=== PATIENT | male | born 1990 | race Caucasian/White ===

== ENCOUNTER 2019-03-29 12:23 | Emergency (ER) | payer OTHER ==
[2019-03-29] MEDS ORDERED: 0.9 % SODIUM CHLORIDE 1000ML 1,000 ML IV ONE (12:31)
--- NOTE | 2019-03-29 12:36 | Emergency Department Record ---
History of Present Illness - General Chief complaint: Pain Stated complaint: PAIN ALL OVER Time Seen by Provider: 03/29/19 12:30 Source: Patient Mode of Arrival: Ambulatory Limitations: No limitations - History of Present Illness Initial comments: 28 yo male presents with five days of muscle pains over his whole body. The onset was Monday and gradually increased since then. The symptoms are present at all times. He states he is better in the morning then by the end of the day the pain all over is at its greatest. He also associates eating with making him feel "bad all over" as well. No vomiting. No diarrhea. No rashes. The pain seems most intense in his thighs proximally. He also feels more intense ache in his neck. He states it hurts to touch his neck, back, chest, arms, legs. No fevers. No recent illness or URI symptoms. Eating does not always make him worse. No vision changes, no coordination changes, no weakness, no numbness. No family history of premature deaths or diseases. No known rheumatologic disorders. He works a physical jobs. No joint redness or swelling. No urinary symptoms. MD Complaint: Other -: Days(s) (5) Location: Other (From head to legs) -: Yes Myalgia Radiation: Other (everywhere) Quality: Aching Consistency: Constant Improves with: Nothing Worsens with: Palpation, Weight bearing, Other (eating) Associated Symptoms: Myalgias - Related Data Previous Rx's Medication Instructions Recorded Ondansetron [Zofran Odt] 4 mg PO Q8H #15 tab.rapdis 03/29/19 Allergies Allergy/AdvReac Type Severity Reaction Status Date / Time Penicillins Allergy PT UNSURE Verified 03/29/19 12:50 OF REACTION Review of Systems Constitutional: Reports: Malaise, Weakness. Denies: Chills, Fever Eyes: Denies: Eye discharge, Eye pain, Photophobia, Vision change ENT: Denies: Congestion, Ear pain, Epistaxis, Throat pain Respiratory: Denies: Cough, Dyspnea, Hemoptysis, Stridor, Wheezes Cardiovascular: Reports: Chest pain (sore to touch the chest - similar tenderness to everywhere else). Denies: Arrhythmia, Dyspnea on exertion, Edema, Orthopnea, Palpitations, Paroxysmal nocturnal dyspnea, Rheumatic Fever, Syncope Endocrine: Reports: Fatigue Gastrointestinal: Reports: Abdominal pain, Nausea. Denies: Constipation, Diarrhea, Vomiting Genitourinary: Denies: Dysuria, Frequency, Hematuria Musculoskeletal: Reports: Myalgia, Neck pain. Denies: Joint swelling Skin: Denies: Bruising, Change in color, Rash Neurological: Reports: Headache. Denies: Abnormal gait, Confusion, Numbness, S eizure, Tingling, Tremors, Vertigo, Weakness Psychiatric: Denies: Anxiety Hematological/Lymphatic: Denies: Easy bleeding, Easy bruising Physical Exam - General General Appearance: Alert, Oriented x3, Cooperative, No acute distress Limitations: No limitations - Head Head exam: Atraumatic, Normocephalic, Normal inspection - Eye Eye exam: Normal appearance, PERRL. negative: Conjunctival injection, Scleral icterus - ENT ENT exam: Normal exam, Mucous membranes moist, Normal orophraynx Ear exam: Normal external inspection Nasal Exam: Normal inspection Mouth exam: Normal external inspection Teeth exam: Normal inspection Throat exam: Normal inspection - Neck Neck exam: Normal inspection, Full ROM, Tenderness. negative: Lymphadenopathy, Meningismus, Thyromegaly - Respiratory Respiratory exam: Normal lung sounds bilaterally, Chest wall tenderness. negative: Accessory muscle use, Decreased breath sounds, Prolonged expiratory, Rhonchi, Stridor, Wheezes - Cardiovascular Cardiovascular Exam: Regular rate, Normal rhythm, Normal heart sounds Peripheral Pulses: 2+: Radial (R), Radial (L) - GI/Abdominal GI/Abdominal exam: Soft, Tenderness. negative: Distended, Guarding, Rebound, Rigid - Rectal Rectal exam: Deferred - exam: Deferred - Extremities Extremities exam: Normal inspection, Calf tenderness, Full ROM, Tenderness. negative: Joint swelling, Normal capillary refill, Pedal edema - Back Back exam: Reports: CVA tenderness (R), CVA tenderness (L), Full ROM, Paraspinal tenderness, Tenderness, Vertebral tenderness. Denies: Muscle spasm - Neurological Neurological exam: Alert, Oriented X3 - Psychiatric Psychiatric exam: Normal affect, Normal mood. negative: Agitated, Anxious - Skin Skin exam: Dry, Intact, Normal color, Warm Course - Reevaluation(s) Reevaluation #1: 03/29/19 12:53 EKG was performed in the [facility]. Interpreted by me EKG #1: 11:41 Rate: 51 Rhythm: sinus chris [place]: border left Intervals: normal ST segments: normal Prior None 03/29/19 13:14 The CBC is normal The [place] is normal The UA is normal 03/29/19 14:08 The CMP is normal The Troponin is normal Heart Score is very low risk. Discharge The CK is normal. No signs of rhabomyolysis [place] is negative The TSH is normal No acute findings on the labs, vitals, examination We discussed the results of the tests and questions were answered at the time of discharge. The patient is doing well and is comfortable with DC. DC vitals were reviewed. We discussed at length reasons to immediately return to the ED as well as close follow up. The patient will call the PCP for close follow up of this ED visit to review this visit and the tests performed Medical Decision Making - Lab Data Result diagrams: 03/29/19 12:40 03/29/19 12:40 Disposition Disposition: Discharge Clinical Impression: Myalgia Disposition: Home, Self-Care Condition: (1) Good Instructions: Musculoskeletal Pain (ED) Additional Instructions: Call your doctor for the next available follow up appointment if the muscle aches continue Review this ER visit and the tests performed with your family doctor Return to the ER for a recheck if worse, any new concerns or questions Take the prescriptions provided as directed Prescriptions: Ondansetron [Zofran Odt] 4 mg PO Q8H #15 tab.rapdis Forms: Patient Portal Access Time of Disposition: 14:10 Quality - Quality Measures Quality Measures: N/A - Blood Pressure Screening Does Patient Have Any of the Following: Active Dx of HTN Blood Pressure Classification: Hypertensive Reading Systolic Measurement: 129 Diastolic Measurement: 91 Screening for High Blood Pressure: Patient Exclusion, Hx of HTN [G9744]
[2019-03-29 12:52] LABS: ABSOLUTE NEUTROPHIL COUNT 7.03; BASO % 0.3 % (0-6); EOS % 0.8 % (0-6); GRAN % 71.5 % (47-80); HEMATOCRIT 47.5 % (42.0-52.0); LYMPH % 20.7 % (16-45); MEAN CORPUSCULAR HEMOGLOBIN 29.3 pg (27-33); MEAN CORPUSCULAR HGB CONC 33.7 g/dl (32-36); MEAN PLATELET VOLUME 10.7 fl (7.4-10.4); MONO % 6.7 % (0-9); PLATELET COUNT 296 K/uL (130-400); RED BLOOD COUNT 5.46 M/uL (4.40-5.70); WHITE BLOOD COUNT W/O DIFF 9.8 K/uL (4.2-12.2)
[2019-03-29 13:01] LABS: URINE APPEARANCE CLEAR; URINE BILIRUBIN NEGATIVE (NEGATIVE); URINE BLOOD NEGATIVE (NEGATIVE); URINE COLOR YELLOW; URINE GLUCOSE (UA) NEGATIVE (NEGATIVE); URINE KETONE NEGATIVE (NEGATIVE); URINE LEUKOCYTE ESTERASE NEGATIVE (NEGATIVE); URINE NITRITE NEGATIVE (NEGATIVE); URINE PROTEIN NEGATIVE (NEGATIVE); URINE UROBILINOGEN 0.2 E.U./dL (0.20 - 1.00)
[2019-03-29 13:03] LABS: BLOOD UREA NITROGEN 14 mg/dL (6-20)
[2019-03-29 13:04] LABS: CREATININE 0.9 mg/dL (0.7-1.2); EST GLOMERULAR FILTRATION RATE > 60 mL/min; LIPASE 21 U/L (13-60); TOTAL PROTEIN 7.3 g/dL (6.6-8.7)
[2019-03-29 13:06] LABS: GLUCOSE,RANDOM 100 mg/dL (74-109)
[2019-03-29 13:08] LABS: ALT/SGPT 35 U/L (<41)
[2019-03-29 13:09] LABS: ALB/GLOB RATIO 1.8 (1.1-1.8); ALBUMIN 4.7 g/dL (4.0-5.0); ALKALINE PHOSPHATASE 59 U/L (40-129); AST/SGOT 18 U/L (10.0-50.0); C-REACTIVE PROTEIN 0.05 mg/dL (<0.5); CREATINE PHOSPHOKINASE 160 U/L (39-308)
[2019-03-29 13:11] LABS: CKMB 1.7 ng/mL (<6.73)
[2019-03-29 13:44] LABS: ERYTHROCYTE SEDIMENTATION RATE 2 mm/hr (0-15)
== END 2019-03-29 14:22 | disposition home or self-care (01) ==
LOC: ER 12:23
DX: M79.18 Myalgia, other site (principal); I10 Essential (primary) hypertension; F17.290 Nicotine dependence, other tobacco product, uncomplicated
CPT/HCPCS: 80053; 81003; 82550; 82553; 83690; 84443; 84484; 85025; 85651; 86140; 86308; 99284; J7030